=== PATIENT | female | born 1985 | race Caucasian/White ===

== ENCOUNTER 2018-08-08 14:32 | Outpatient (CLI) | payer OTHER ==
--- NOTE | 2018-08-08 16:22 | ULT ---
PELVIC ULTRASOUND: History: Left sided pelvic pain. FINDINGS: Real-time imaging of the pelvis was obtained transabdominally as well as with an endovaginal probe. T his shows a uterus measuring 2.8 x 3.3 x 7.1 cm. Endometrium is thickened at 8.5 mm. The right ovary is normal in appearance. There is a 4.8 x 5.5 cm complex cystic lesion involving the left adnexa. Doppler evaluation with spectral analysis: Normal flow is shown to the adnexal region. No free fluid demonstrated. IMPRESSION: Large complex left ovarian cystic lesion measuring 4.8 x 5.5 cm in size. In a patient of this age daphne up, it could still be related to stage of menstrual cycle. I would recommend a 6 week follow up ultra sound examination for re-assessment. POS: [facility]
== END 2018-08-08 14:33 | disposition home or self-care (01) ==
LOC: ULT 14:32
PROVIDERS: ATTEND Internal Medicine
DX: R10.2 Pelvic and perineal pain (principal); N83.8 Other noninflammatory disorders of ovary, fallopian tube and broad ligament
CPT/HCPCS: 76856

== ENCOUNTER 2018-09-21 07:28 | Outpatient (CLI) | payer OTHER ==
--- NOTE | 2018-09-21 08:45 | CT ---
CT arteriogram chest with IV contrast and 3-D imaging CT arteriogram abdomen with IV contrast and 3-D imaging HISTORY: Abnormal aortic valve. Evaluate for aortic aneurysm. Q23.1. FINDINGS: There is good contrast flow within the pulmonary arteries and aorta. The ascending aorta is 3.9 cm greatest diameter. No evidence of dissection. Normal branching great vessels at the aortic arch. Descending thoracic aorta is 1.7 cm. Abdominal aor ta is of normal caliber. The visceral arteries are patent. There is proximal bifurcation of the left renal artery. Excreted contrast is apparent within the nondilated renal collecting systems. Small amount of residual thymus within the upper anterior mediastinum. Bone island is noted within th e T6 vertebral body. IMPRESSION: While the ascending aorta appears prominent for the size of the patient, it only measures 3.9 cm greatest diameter. No significant abnormal areas are demonstrated.
[2018-09-21] MEDS ORDERED: Iopamidol 370 76% 100 ML VIAL ONE (09:00)
== END 2018-09-21 07:29 | disposition home or self-care (01) ==
LOC: SCSCT 07:28
PROVIDERS: ATTEND Internal Medicine Cardiovascular Disease
DX: Q23.1 Congenital insufficiency of aortic valve (principal)
CPT/HCPCS: 71275; Q9967

== ENCOUNTER 2019-08-15 13:27 | Outpatient (CLI) | payer OTHER ==
[2019-08-15 14:17] LABS: BHCG - Serum Negative (NEGATIVE); Follow-up Chemistry Comp? YES; Pregs Control Background? CLEAR/WHITE (CLR/WHITE); Pregs Control Bar Appear? YES (CONTROL BAR)
[2019-08-15] MEDS ORDERED: Iopamidol 300 61% 30 ML VIAL ONE (14:54)
--- NOTE | 2019-08-15 15:12 | RAD ---
HSG: INDICATION: History of infertility. TECHNIQUE: The procedure was described in detail to the patient. The patient verbalized understanding. The patie nt took a preprocedure a serum test which was negative. The patient is day 6 of the menstrual cycle. The patient is not having any active vaginal spotting. The patient has not had vagin al spotting in the last 24 hours. The patient was placed in a lithotomy position on the fluoroscopic table. A vaginal speculum was plac ed. The cervix was identified and the cervical os was painted with Betadine solution. Multiple attempts to cannulate the cervical os were made with the sterilized sound device. The cervical os cou ld only be penetrated approximately three quarters of a centimeter with the speculum device before meeting resistance. The speculum was replaced and the cervical os was again attempted to be cannulate d utilizing the sound device. Multiple attempts were made then to place the catheter within the intrauterine canal which proved unsuccessful. Attempts were made to deploy the balloon catheter in th e region of the distal cervical canal which also appeared to be unsuccessful. The patient tolerated the procedure without difficulty. FINDINGS: No acute osseous abnormality is evident. SI joints are normal appearing. Visualized bowel gas pattern is unremarkable appearing. No suspicious calcification is evident. IMPRESSION: Unsuccessful HSG. Multiple attempts were made to cannulate the cervical os which proved unsuccessful. Findings may be related to cervical stenosis or possibly a prominent nabothian cyst lining the cervical canal, narrowing the cervical os. Findings were discussed with Dr. Lutz at 3:10 PM on 08/15/2019. CODE CR Transcribed Date/Time: 08/15/2019 3:39 PM
== END 2019-08-15 13:28 | disposition home or self-care (01) ==
LOC: RAD 13:27
PROVIDERS: ATTEND Obstetrics & Gynecology
DX: N97.9 Female infertility, unspecified (principal)
CPT/HCPCS: 58340; 74740; 84703; Q9967

== ENCOUNTER 2019-10-12 12:56 | Outpatient (CLI) | payer OTHER ==
[2019-10-12 13:37] LABS: BHCG - Serum Negative (NEGATIVE); Pregs Control Background? CLEAR/WHITE (CLR/WHITE); Pregs Control Bar Appear? YES (CONTROL BAR)
[2019-10-12 13:57] LABS: Follow-up Chemistry Comp? YES
--- NOTE | 2019-10-12 14:45 | RAD ---
Hysterosalpingogram HISTORY: Infertility. FINDINGS: Catheterization and injection were performed by Dr. Lutz. There is normal capacity and contour of the endometrial cavity. Immediate filling of each fallopian t ube. Immediate spill bilaterally. There is very subtle irregularity of the isthmic tubal lining bilaterally, without rivas diverticula formation. IMPRESSION : Patent fallopian tubes. Minimal surface irregularity at the ischemic portion of each tube. Could poss ibly be related to tubal adenomyosis or endometriosis.
== END 2019-10-12 12:57 | disposition home or self-care (01) ==
LOC: RAD 12:56
PROVIDERS: ATTEND Obstetrics & Gynecology
DX: N97.9 Female infertility, unspecified (principal)
CPT/HCPCS: 58340; 74740; 84703